=== PATIENT | male | born 1965 | race Caucasian/White ===

== ENCOUNTER 2018-03-04 06:55 | Observation (INO) ==
[2018-03-04] MEDS ORDERED: ceFAZolin 2 GM Premix Inj 2 GM/50 ML PIGGYBACK IV.SIG ONE (07:32)
[2018-03-04] MEDS ORDERED: Sodium Chlor 0.9% Inj 250 ML ONE (07:33)
[2018-03-04] MEDS ORDERED: Chlorhexidine Gluconate 2% 1 Pack (2 Cloths) TOPICAL SCH (07:45)
[2018-03-04] MEDS ORDERED: Metoprolol Tartrate 25 MG Tablet PO SCH (07:45)
[2018-03-04] MEDS ORDERED: Chlorhexidine 4% Topical 120 APPLIC/120 ML Bottle TOPICAL SCH (07:45)
[2018-03-04] MEDS ORDERED: Sodium Chlor 0.9% Inj 500 ML IV.SIG SCH (08:00)
[2018-03-04] MEDS ORDERED: Vancomycin Inj 1 GM/200 ML PIGGYBACK IV.SIG SCH ×2 (08:00→21:00)
--- NOTE | 2018-03-04 08:30 | P.DCO ---
- Physical Therapy Physical Therapy: Gait training Knee: Other (quad tendon repair), Protocol: Left Canvas Knee Splint: At all times Left Lower Extremity Weight Bearing: Partial weight bearing 50% (with knee brace on), No strengthening, No quad sets Left Lower Extremity Range of Motion: No ROM - Nursing Dressing changes: Daily dressing change, Xeroform, Coverderm/Primapore - Certification Need for Home Health services: I have seen patient Stephen MaciasNaomyzander on 03/04/18. My clinical findings support the need for the requested home health care services because: Need for Home Health Services: Limited mobility due to disease progression Homebound Certification: I certify that my clinical findings support that this patient is homebound because: Homebound Certification: Post-op weakness
[2018-03-04] MEDS: ceFAZolin 2 GM Premix Inj 2 GM/50 ML PIGGYBACK IV.SIG SCH ×3 (08:40→16:18)
[2018-03-04] MEDS ORDERED: Post-op Orders (for Pharmacy) OTHER STA (09:18)
--- NOTE | 2018-03-04 09:18 | P.OP ---
Date of procedure: 03/04/18 Procedure: Primary repair left quadriceps tendon Anesthesia: GETA Surgeon: Donny Miles MD Communications Equipment Installer: ANTONIETA Preston PA-C The surgical procedure was assisted by my physician video production assistant. My P.A. presence was necessary throughout this case for the manipulation and positioning of the surgical extremity. My P.A. was assisting me throughout the duration of this procedure. The skill set of a physician video production assistant was medically necessary to complete this procedure. During the surgical case the certified surgical tech/first assistant was working at the back table and the physician video production assistant was directly assisting me. Operation and Findings: Plan of activity: Partial weightbearing (50 lbs) with knee immobilizer on, passive range of motion 0-45 This patient had an injury resulting in complete right quadriceps tendon rupture. Informed consent was confirmed preoperatively and informed consent was obtained. I had a detailed discussion with the patient regarding the risks and benefits of surgery. Patient was brought to the operating room and placed on the OR table. IV sedation and GETA were administered by anesthesiologist and IV antibiotics were given prior to incision. A timeout procedure was performed. The operative leg was prepped with alcohol followed by Hibiclens and draped in the usual sterile fashion. The procedure began with a 5-inch incision over the anterior knee. Subcutaneous tissue was dissected with Bovie. At this point the tendon rupture site was visualized. The knee was thoroughly irrigated and hematoma was evacuated. A rongeur was used to debride the superior pole of the patella. The quadriceps tendon was completely avulsed off of bone. Next, 3 drill tunnels were created from superior to inferior across the body of the patella. Two #5 FiberWire sutures were now passed through the quadriceps tendon in a Sanborn style fashion. The sutures were now passed through the drill holes of the patella. The quadriceps tendon was now reduced to the patella. Sutures were tensioned and tied. The remainder of the retinaculum was now closed with #1 Vicryl. Subcutaneous tissue was closed with 3-0 Vicryl and skin was closed with jody. Sterile dressings were applied. The patient placed into a knee immobilizer and was transferred to recovery in stable condition. Needle and sponge counts were correct.
[2018-03-04] MEDS ORDERED: *morphine SULFATE 10 MG/ML PERIprocedure ONLY ONE ×3 (09:43→10:18)
[2018-03-04] MEDS ORDERED: fentaNYL Citrate Inj 100 MCG/2 ML Ampul ONE (09:45)
[2018-03-04] MEDS ORDERED: *Labetalol HCl Inj 100 MG/20 ML Vial PERIprocedural Use ONLY IV.PUSH ONE (10:03)
[2018-03-04] MEDS ORDERED: HYDROmorphone PF Inj 2 MG/ML Vial ONE (10:36)
[2018-03-04] MEDS ORDERED: ROPIVACAINE ONE (10:56)
[2018-03-04] MEDS ORDERED: Glycopyrrolate Inj 1 MG/5 ML Syringe IV.PUSH ONE (12:00)
[2018-03-04] MEDS ORDERED: Neostigmine Inj 5 MG/5 ML Syringe IV.PUSH ONE (12:00)
[2018-03-04] MEDS ORDERED: Lidocaine PF 1% Inj 5 ML Syringe INFILTRATN ONE (12:00)
[2018-03-04] MEDS ORDERED: Metoprolol Inj 5 MG/5 ML Vial IV.PUSH ONE (12:00)
[2018-03-04] MEDS ORDERED: *Ondansetron Inj 4 MG/2 ML Vial PERIprocedural Use ONLY ONE (12:45)
[2018-03-04] MEDS: Calcium/Vitamin D 250/125 MG Tablet PO SCH ×2 (13:10→18:52)
[2018-03-04] MEDS: Morphine Inj 4 MG/ML Vial IV.PUSH PRN ×3 (14:13→20:45)
--- NOTE | 2018-03-04 17:42 | ECG ---
Date Performed: 03/04/2018 Time Performed: 07:26:11 PTAGE: 53 years EKG: Sinus rhythm NORMAL ECG PREVIOUS TRACING : 08/11/2017 11.29 DOCTOR: Ascencion Thrasher Interpretating Date/Time 03/04/2018 17:40:17
[2018-03-04] MEDS ORDERED: Vancomycin Inj 1,000 MG in Sodium Chlor 0.9% Inj 250 ML IV.SIG SCH (20:00)
[2018-03-04] MEDS: Vancomycin Inj 1,000 MG in Sodium Chlor 0.9% Inj 250 ML IV.SIG SCH (20:46)
[2018-03-05] MEDS: ceFAZolin 2 GM Premix Inj 2 GM/50 ML PIGGYBACK IV.SIG SCH ×6 (01:15→16:19)
[2018-03-05] MEDS: Morphine Inj 4 MG/ML Vial IV.PUSH PRN ×2 (01:16→16:17)
--- NOTE | 2018-03-05 06:46 | P.PNOP ---
Subjective Interval history: POD 1 s/p left quad tendon repair states pain overnight but resting comfortably at the moment also reports left arm pain at his biceps. Physical Exam Vital signs: Vital Signs 03/04/18 07:35 03/04/18 09:37 03/04/18 09:45 Temperature 98.5 F 97.9 F Pulse Rate 82 76 80 Respiratory Rate 20 16 16 Blood Pressure 133/76 153/89 H 153/97 H Pulse Oximetry 96 94 L 94 L 03/04/18 10:00 03/04/18 10:15 03/04/18 10:30 Temperature Pulse Rate 68 62 64 Respiratory Rate 16 16 16 Blood Pressure 164/98 H 165/95 H 156/99 H Pulse Oximetry 96 96 96 03/04/18 11:00 03/04/18 11:30 03/04/18 12:00 Temperature Pulse Rate 78 64 80 Respiratory Rate 16 16 16 Blood Pressure 143/76 H 142/85 H 128/89 Pulse Oximetry 95 96 96 03/04/18 13:00 03/04/18 14:00 03/04/18 16:00 Temperature 98 F Pulse Rate 70 88 93 H Respiratory Rate 16 16 16 Blood Pressure 124/77 118/69 118/71 Pulse Oximetry 95 96 16 L 03/04/18 20:00 03/05/18 00:00 03/05/18 04:00 Temperature 97.4 F L 98.1 F 98.6 F Pulse Rate 101 H 115 H 93 H Respiratory Rate 20 20 20 Blood Pressure 120/72 125/60 129/76 Pulse Oximetry 97 94 L 97 Intake & Output 03/04/18 03/04/18 03/05/18 06:59 18:59 06:59 Intake Total 900 / 900 3016 / 3016 Output Total 2049 / 2049 Balance 870 / 870 966 / 966 Weight 100.5 kg 100 kg Intake: IV 900 / 900 1296 / 1296 LR 1000 mL Inj 1,000 ML @ 80 996 / 996 mls/hr IV.CONT .[id number] [facility] Rx# :[id number] LR 1000 mL Inj 1,000 ML @ 30 800 / 800 mls/hr IV.SIG .Q24H [facility] Rx#: [id number] Vancomycin Inj 1,000 MG In NS 250 / 250 Inj 250 ML @ 250 mls/hr IV.SIG Q12H [facility] Rx#:[id number] Ancef 2 GM Premix Inj 2 gm In 100 / 100 50 / 50 50 ml @ 100 mls/hr IV.SIG Q8H [facility] Rx#:[id number] Oral 1719 / 1719 Output: Urine 2049 Estimated Blood Loss Other: Date of Last Bowel Movement 03/03/18 Weight On Admission 100.5 kg Narrative: LLE: dressings clean and dry. intact. NVI. +knee brace LUE: full FL/EXT of elbow. moderate discomfort with flexion. "nilo" deformity with palpable mass at distal biceps. Assessment and Plan - Assessment and Plan 1) Left Quad tendon repair - POD 1 -up to 50lbs of weight with knee brace on -no quad sets, leg lifts, strengthening, or motion of knee -daily dressing changes POD 2 -plan for DC home today -f/u with [facility] or JOSE ALBERTO in 2 weeks 2) Left Lesser Biceps Head tear -WBAT -nonop treatment
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
[2018-03-05 08:35] VITALS: RESP 18
[2018-03-05] MEDS: Vancomycin Inj 1,000 MG in Sodium Chlor 0.9% Inj 250 ML IV.SIG SCH (09:50)
[2018-03-05] MEDS: Calcium/Vitamin D 250/125 MG Tablet PO SCH ×3 (09:58→18:51)
[2018-03-05 16:37] VITALS: BP 150/64; PULSE 83; TEMP 97.9; O2SAT 95
== END 2018-03-05 20:12 | disposition home health service (06) ==
LOC: N06 06:55 → HSDC 06:55 → HSDI 06:55 → N06 15:33
PROVIDERS: ADMIT Orthopaedic Surgery Orthopaedic Trauma; ATTEND Orthopaedic Surgery Orthopaedic Trauma